=== PATIENT | male | born 1995 | race Caucasian/White ===

== ENCOUNTER 2017-08-17 19:35 | Inpatient (IN) | payer OTHER, BC ==
[~2017-08-17] VITALS: Ht 177.8 cm; Wt 78.1 kg
[2017-08-17 19:52] VITALS: O2SAT 95
[2017-08-17] MEDS ORDERED: SODIUM CHLORIDE 0.9% FLUSH 10 ML FLUSH IV FLUSH PRN (20:00)
[2017-08-17] MEDS: SODIUM CHLOR 0.9% 1000 ML INJ 1,000 ML IV SCH (20:00)
[2017-08-17] MEDS ORDERED: oxyCODONE/ACETAMINOPHEN 5 MG/325 MG TAB PO PRN (20:00)
[2017-08-17] MEDS ORDERED: NALOXONE HCL 0.4 MG/ML AMP IV PUSH PRN (20:00)
[2017-08-17] MEDS ORDERED: Post-op Orders (for Pharmacy) XX ONE (20:00)
[2017-08-17] MEDS ORDERED: ONDANSETRON HCL 4 MG/2 ML VIAL IV PUSH PRN (20:00)
[2017-08-17] MEDS ORDERED: MORPHINE SULFATE 4 MG/ML INJ IV PRN (20:15)
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
[2017-08-17] MEDS ORDERED: IOHEXOL 350 MG/ML 10 ML VIAL (for RAD DIAG) IVCONTRAST ONE (20:17)
[2017-08-17 20:20] LABS: AUTOMATED NEUTROPHIL # 4.9 TH/MM3 (1.8-7.7); BASOPHIL # 0.1 TH/MM3 (0-0.2); BASOPHIL % 0.7 % (0.0-2.0); EOSINOPHIL % 0.3 % (0.0-4.0); HEMATOCRIT 40.9 % (39.0-51.0); HEMOGLOBIN 14.2 GM/DL (13.0-17.0); LYMPH % 40.1 % (9.0-44.0); LYMPHOCYTE # 3.7 TH/MM3 (1.0-4.8); MEAN CELL VOLUME 89.3 FL (80.0-100.0); MEAN CORPUSCULAR HGB CONC 34.7 % (32.0-36.0); MEAN PLATELET VOLUME 8.6 FL (7.0-11.0); MONOCYTE # 0.6 TH/MM3 (0-0.9); NEUT % 52.9 % (16.0-70.0); PLATELET COUNT 223 TH/MM3 (150-450); RED BLOOD COUNT 4.59 MIL/MM3 (4.50-5.90); RED CELL DISTRIBUTION WIDTH 13.3 % (11.6-17.2); WHITE BLOOD COUNT 9.3 TH/MM3 (4.0-11.0)
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
[2017-08-17 20:30] VITALS: PULSE 82
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
[2017-08-17 20:36] VITALS: BP 137/72; PULSE 84; RESP 22; TEMP 99.5; O2SAT 100
[2017-08-17 20:44] LABS: INTERNATIONAL NORMALIZED RATIO 1.1 RATIO; PROTHROMBIN TIME - PATIENT 11.6 SEC (9.8-11.6)
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
[2017-08-17] MEDS: SODIUM CHLORIDE 0.9% FLUSH 10 ML FLUSH IV FLUSH SCH (20:57)
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
[2017-08-17 21:37] VITALS: O2SAT 100
[2017-08-17 21:40] VITALS: O2SAT 100
[2017-08-17 22:00] VITALS: PULSE 79
--- NOTE | 2017-08-17 22:26 | HHI.PR ---
Addendum to Inpatient Note Addendum Reason: Additional Documentation Additional Information I was notified regarding patient's admission by Dr. Sigala to be aware in case of decompensation at night. Patient being admitted by trauma service. Franc Messer MD Aug 17, 2017 22:26
[2017-08-18] VITALS (13 sets, daily range): BP systolic 112–128; BP diastolic 50–72; PULSE 54–79; RESP 18–22; TEMP 97.5–99.3; O2SAT 97–100
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
[2017-08-18] MEDS: SODIUM CHLOR 0.9% 1000 ML INJ 1,000 ML IV SCH (06:00)
[2017-08-18 06:36] LABS: AUTOMATED NEUTROPHIL # 4.3 TH/MM3 (1.8-7.7); BASOPHIL # 0.1 TH/MM3 (0-0.2); BASOPHIL % 0.7 % (0.0-2.0); EOSINOPHIL % 0.6 % (0.0-4.0); HEMATOCRIT 36.2 % (39.0-51.0); HEMOGLOBIN 12.8 GM/DL (13.0-17.0); LYMPH % 30.2 % (9.0-44.0); LYMPHOCYTE # 2.2 TH/MM3 (1.0-4.8); MEAN CELL VOLUME 88.8 FL (80.0-100.0); MEAN CORPUSCULAR HEMOGLOBIN 31.5 PG (27.0-34.0); MEAN CORPUSCULAR HGB CONC 35.4 % (32.0-36.0); MEAN PLATELET VOLUME 8.4 FL (7.0-11.0); MONOCYTE # 0.8 TH/MM3 (0-0.9); NEUT % 57.5 % (16.0-70.0); PLATELET COUNT 164 TH/MM3 (150-450); RED BLOOD COUNT 4.08 MIL/MM3 (4.50-5.90); WHITE BLOOD COUNT 7.4 TH/MM3 (4.0-11.0)
[2017-08-18 06:42] LABS: CALCIUM 8.4 MG/DL (8.5-10.1); CREATININE 0.96 MG/DL (0.60-1.30)
[2017-08-18] MEDS: SODIUM CHLORIDE 0.9% FLUSH 10 ML FLUSH IV FLUSH SCH ×2 (08:28→20:47)
[2017-08-18] MEDS: oxyCODONE/ACETAMINOPHEN 10 MG/325 MG TAB PO PRN ×3 (08:28→20:16)
[2017-08-18] MEDS: MAGNESIUM HYDROXIDE SUSP 30 ML CUP PO SCH ×2 (08:28→20:54)
[2017-08-18] MEDS: METHOCARBAMOL 500 MG TAB PO SCH ×3 (08:28→20:16)
[2017-08-18] MEDS: DOCUSATE SODIUM 50 MG/SENNA 8.6 MG TAB PO SCH ×2 (08:28→20:54)
[2017-08-18] MEDS: LIDOCAINE HCL 5% PATCH T-DERMAL SCH (08:30)
--- NOTE | 2017-08-18 14:12 | RADRPT ---
EXAM DATE/TIME: 08/18/2017 13:19 [facility] COMPARISON: No previous studies available for comparison. INDICATIONS : Pain post fall. MEDICAL HISTORY : None. SURGICAL HISTORY : None. ENCOUNTER: Subsequent ACUITY: 2 days PAIN SCORE: 5/10 LOCATION: Right Shoulder. FINDINGS: Two view examination of the right shoulder demonstrates no evidence of fracture or dislocation. The glenohumeral and acromioclavicular joints are maintained. Bony mineralization is normal. CONCLUSION: 1. No acute findings. Mitchel Santacruz MD on August 18, 2017 at 14:09 Board Certified Radiologist. This report was verified electronically.
[2017-08-19] VITALS: BP 124/60; PULSE 75; RESP 18; TEMP 97.3; O2SAT 95
[2017-08-19] MEDS: oxyCODONE/ACETAMINOPHEN 10 MG/325 MG TAB PO PRN ×4 (00:15→12:30)
[2017-08-19 04:00] VITALS: BP 128/61; PULSE 78; RESP 20; TEMP 98.3; O2SAT 95
[2017-08-19 04:33] LABS: AUTOMATED NEUTROPHIL # 3.8 TH/MM3 (1.8-7.7); BASOPHIL # 0.1 TH/MM3 (0-0.2); EOSINOPHIL # 0.2 TH/MM3 (0-0.4); EOSINOPHIL % 2.6 % (0.0-4.0); HEMATOCRIT 35.9 % (39.0-51.0); HEMOGLOBIN 12.7 GM/DL (13.0-17.0); LYMPH % 36.4 % (9.0-44.0); LYMPHOCYTE # 2.7 TH/MM3 (1.0-4.8); MEAN CELL VOLUME 89.1 FL (80.0-100.0); MEAN CORPUSCULAR HEMOGLOBIN 31.4 PG (27.0-34.0); MEAN CORPUSCULAR HGB CONC 35.3 % (32.0-36.0); MEAN PLATELET VOLUME 8.4 FL (7.0-11.0); MONO % 8.6 % (0.0-8.0); MONOCYTE # 0.6 TH/MM3 (0-0.9); NEUT % 51.4 % (16.0-70.0); PLATELET COUNT 165 TH/MM3 (150-450); RED BLOOD COUNT 4.03 MIL/MM3 (4.50-5.90); WHITE BLOOD COUNT 7.4 TH/MM3 (4.0-11.0)
[2017-08-19 04:52] LABS: ALBUMIN 3.6 GM/DL (3.4-5.0); AST (GOT) 107 U/L (15-37); BICARBONATE 29.4 MEQ/L (21.0-32.0); BLOOD UREA NITROGEN 15 MG/DL (7-18); CALCIUM 8.9 MG/DL (8.5-10.1); CHLORIDE 103 MEQ/L (98-107); CREATININE 1.02 MG/DL (0.60-1.30); GLOMERULAR FILTRATION RATE 91 ML/MIN (>89); GLUCOSE,RANDOM 109 MG/DL (74-106); SODIUM (NA) 139 MEQ/L (136-145)
[2017-08-19 04:57] LABS: ALKALINE PHOSPHATASE 62 U/L (45-117); ALT (GPT) 126 U/L (12-78); TOTAL BILIRUBIN ADULT 2.2 MG/DL (0.2-1.0); TOTAL PROTEIN 6.4 GM/DL (6.4-8.2)
[2017-08-19] MEDS: METHOCARBAMOL 500 MG TAB PO SCH ×2 (05:50→14:51)
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
[2017-08-19 08:00] VITALS: BP 127/61; PULSE 76; RESP 16; TEMP 98.2; O2SAT 90
[2017-08-19] MEDS: SODIUM CHLORIDE 0.9% FLUSH 10 ML FLUSH IV FLUSH SCH (10:00)
[2017-08-19] MEDS: MAGNESIUM HYDROXIDE SUSP 30 ML CUP PO SCH (10:04)
[2017-08-19] MEDS: DOCUSATE SODIUM 50 MG/SENNA 8.6 MG TAB PO SCH (10:04)
[2017-08-19] MEDS: LIDOCAINE HCL 5% PATCH T-DERMAL SCH (11:00)
[2017-08-19] MEDS ORDERED: MAGN30S PO (11:32)
[2017-08-19] MEDS ORDERED: PERI PO (11:32)
[2017-08-19] MEDS ORDERED: METH500T3 PO (11:32)
[2017-08-19] MEDS ORDERED: OXYC1TAB63 PO (11:32)
[2017-08-19 12:00] VITALS: BP 129/66; PULSE 79; RESP 15; TEMP 97.9; O2SAT 96
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
== END 2017-08-19 15:42 | disposition home or self-care (01) | DRG 206 ==
LOC: NEPI 19:35 → NEDA 20:06 → EDBD 20:06 → N03A 20:21 → N06A 08-18 13:48
PROVIDERS: ADMIT Surgery; ATTEND Surgery
DX: S27.322A Contusion of lung, bilateral, initial encounter (principal); S22.039A Unspecified fracture of third thoracic vertebra, initial encounter for closed fracture; R04.2 Hemoptysis; S06.0X9A Concussion with loss of consciousness of unspecified duration, initial encounter; J98.4 Other disorders of lung; S27.892A Contusion of other specified intrathoracic organs, initial encounter; S22.049A Unspecified fracture of fourth thoracic vertebra, initial encounter for closed fracture; S22.32XA Fracture of one rib, left side, initial encounter for closed fracture; S22.31XA Fracture of one rib, right side, initial encounter for closed fracture; R09.02 Hypoxemia; R40.2413 Glasgow coma scale score 13-15, at hospital admission; V29.9XXA Motorcycle rider (driver) (passenger) injured in unspecified traffic accident, initial encounter
CPT/HCPCS: 70450; 70486; 71045; 71260; 72125; 72129; 72132; 72170; 73030; 74177; 80048; 80053; 85025; 85610; 85730; 86850; 86900; 86901; 87641; 94150; 94667; 94668; 99285; 99291; G0390; J2270; J7030; Q9967